=== PATIENT | male | born 1940 | race Caucasian/White ===

== ENCOUNTER → 2016-12-05 | Outpatient (CLI) | payer OTHER ==
--- NOTE | ~2016-12-05 | CT17 ---
[facility] A Service of [facility] RADIOLOGY TEXT RESULTS PATIENT: EDY LANDON LOCATION: [facility] : 42 UNIT #: [id number] AGE: [address]: Magno Menjivar II, MD SEX: M ORDER DR: [id number] [facility] [address] [place], [place] [address] [id number] O MR#: [id number] Acc #: [id number] NAME: EDY LANDON : 1940 SEX: M STUDY DATE/TIME: 12/05/2016 13:53 UNIT: [facility] ROOM: STUDY DESCRIPTION: CT Angio Head Attending Physician: Magno Menjivar II., M.D. Referring Physician: Magno Menjivar II., M.D. Ordering Physician: Magno Menjivar II., M.D. Primary Care Physician: Dianne Mcgregor A.P.R.N. MEDICAL IMAGING REPORT This report is preliminary unless electronic signature is present EXAM CT angiogram of the head and neck with contrast, dated 12/05/2016. COMPARISON None. HISTORY Dizziness for [address] angiogram of the head and neck was obtained with IV contrast in the axial plane followed by reformats. The major neck arteries are demonstrated with curved reformats. Reformats of the brain in all 3 planes followed by tumbling 3D MIP images and surface-rendered images of the [place] in a separate workstation. This CT exam was performed with one or more of the following radiation dose reduction techniques: automatic exposure control, adjustment of mA and/or kV according to patient size, and iterative reconstruction. FINDINGS Three-vessel aortic arch is seen with atherosclerotic plaques in the arch and at the origin of the left subclavian artery with probably mild narrowing. Bilateral common carotid arteries demonstrate plaques in the distal CCA extending into the bilateral ICA bulbs. No measureable stenosis in the ICA bulbs per NASCET criteria. Mild plaque is noted in the proximal right external carotid artery without narrowing. Left external carotid artery and left vertebral artery are unremarkable. Mild plaque is noted in the origin of the right vertebral artery without any severe stenosis. Bilateral vertebral arteries demonstrate expected caliber and flow. They are codominant. HEAD: Bilateral intracranial internal carotid arteries demonstrate mild atherosclerotic plaques and bilateral cavernous ICA. Bilateral anterior [facility] A Service of [facility] RADIOLOGY TEXT RESULTS PATIENT: EDY LANDON LOCATION: [facility] : 42 UNIT #: [id number] AGE: [address]: Magno Menjivar II, MD SEX: M ORDER DR: cerebral arteries demonstrate smaller left A2 segment when compared to the right, probably hypoplastic rather than stenotic given the lack of any plaques. Bilateral middle cerebral arteries are unremarkable. Bilateral posterior communicating arteries are seen with persistent appearance of the right [employer]. Hypoplastic right P1 is seen. Basilar artery visualized AICA are unremarkable. Vertebral arteries demonstrate decreased caliber as they extend towards the basilar artery particularly in the right, after the take-off of the right PICA. 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 No significant lymphadenopathy. Imaged portions of the lungs and the brain do not demonstrate any acute abnormality. 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 Visualized portions of the right MCA, Sylvian branches are within normal limits. IMPRESSION 1. No hemodynamic flow-limiting significant stenosis in bilateral internal carotid artery bulbs per NASCET criteria. 2. 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 Dictated by... Dolores Parmar M.D. THIS IS AN ELECTRONICALLY VERIFIED REPORT Dolores Parmar M.D. at 12/07/2016 2:50 PM CPR/jt TD: 12/06/2016 15:17 JOB #: [id number] MEDICAL IMAGING REPORT Page 1 of 1 COPY
--- NOTE | ~2016-12-05 | CT23 ---
[facility] A Service of [facility] RADIOLOGY TEXT RESULTS PATIENT: EDY LANDON LOCATION: [facility] : 42 UNIT #: [id number] AGE: [address]: Magno Menjivar II, MD SEX: M ORDER DR: [id number] [facility] [address] [place], [place] [address] [id number] O MR#: [id number] Acc #: [id number] NAME: EDY LANDON : 1940 SEX: M STUDY DATE/TIME: 12/05/2016 13:53 UNIT: [facility] ROOM: STUDY DESCRIPTION: CT Angio Neck Attending Physician: Magno Menjivar II., M.D. Referring Physician: Magno Menjivar II., M.D. Ordering Physician: Magno Menjivar II., M.D. Primary Care Physician: Dianne Mcgregor A.P.R.N. MEDICAL IMAGING REPORT This report is preliminary unless electronic signature is present EXAM CT angiogram of the head and neck with contrast, dated 12/05/2016. COMPARISON None. HISTORY Dizziness for [address] angiogram of the head and neck was obtained with IV contrast in the axial plane followed by reformats. The major neck arteries are demonstrated with curved reformats. Reformats of the brain in all 3 planes followed by tumbling 3D MIP images and surface-rendered images of the [place] in a separate workstation. This CT exam was performed with one or more of the following radiation dose reduction techniques: automatic exposure control, adjustment of mA and/or kV according to patient size, and iterative reconstruction. FINDINGS Please see CTA head neck performed 12/05/2016 for results. Dictated by... Dolores Parmar M.D. THIS IS AN ELECTRONICALLY VERIFIED REPORT Dolores Parmar M.D. at 12/07/2016 2:51 PM CPR/jt TD: 12/06/2016 15:28 [facility] A Service of [facility] RADIOLOGY TEXT RESULTS PATIENT: EDY LANDON LOCATION: [facility] : 42 UNIT #: [id number] AGE: [address]: Magno Menjivar II, MD SEX: M ORDER DR: STEPHEN #: [id number] MEDICAL IMAGING REPORT Page 1 of 1 COPY
[2016-12-05 14:30] LABS: POC - CREATININE 0.94 mg/dL (0.64-1.27); POC - GFR >60.0 mL/min (>60)
== END | disposition home or self-care (01) ==
LOC: CCAT 13:12
PROVIDERS: Psychiatry & Neurology Neurology
DX: R42 Dizziness and giddiness (principal); I67.2 Cerebral atherosclerosis; I65.23 Occlusion and stenosis of bilateral carotid arteries
CPT/HCPCS: 70496; 70498; 82565; Q9967